=== PATIENT | male | born 1970 | race African-American/Black ===

== ENCOUNTER 2019-07-27 22:55 | Emergency (ER) | payer SELFPAY ==
[2019-07-27] MEDS ORDERED: Ketorolac Tromethamine 30 MG/ML VIAL ONE (23:28)
== END 2019-07-28 00:21 | disposition home or self-care (01) ==
LOC: ERS 22:55
DX: M79.89 Other specified soft tissue disorders (principal); M79.621 Pain in right upper arm; X50.1XXA Overexertion from prolonged static or awkward postures, initial encounter
CPT/HCPCS: 96372; 99283; J1885

== ENCOUNTER 2022-12-28 19:43 | Emergency (ER) | payer OTHER, SELFPAY ==
[2022-12-28] MEDS ORDERED: Lidocaine 1% PF 5 ML VIAL ONE ×2 (20:38→20:39)
[2022-12-28] MEDS ORDERED: Boostrix 0.5 ML (Tdap) VIAL (>/=7 yrs of age) ONE (20:39)
== END 2022-12-28 21:45 | disposition home or self-care (01) ==
LOC: ERS 19:43
DX: S61.210A Laceration without foreign body of right index finger without damage to nail, initial encounter (principal); W26.8XXA Contact with other sharp object(s), not elsewhere classified, initial encounter
CPT/HCPCS: 12001; 90471; 90715